=== PATIENT | female | born 1985 | race Caucasian/White ===

== ENCOUNTER 2022-07-21 10:16 | Outpatient (CLI) | payer OTHER, SELFPAY ==
[2022-07-21 11:58] LABS: Kit Draw Collected
== END 2022-07-21 10:17 | disposition home or self-care (01) ==
LOC: ANHGOSHLAB 10:21
PROVIDERS: PCP Family Medicine; Visit Provider Family Medicine
DX: R00.2 Palpitations (principal)
CPT/HCPCS: 36415

== ENCOUNTER 2024-11-17 08:03 | Outpatient (CLI) | payer OTHER, SELFPAY ==
--- OUTSIDE RECORDS SUMMARY | 2024-11-17 08:07 | XMS_ITS | Clinical Summary ---
Author Organization [facility] Address [address] [place] [address] Care Team Providers Care Thread Roller Name Role Phone Marisela Fairchild MD Primary Care Provider + Allergies No known active allergies Medications FLUoxetine (PROzac) 40 mg capsule Take 1 capsule (40 mg total) by mouth daily Active metoprolol XL (TOPROL-XL) 25 mg extended release tablet Take 1 tablet (25 mg total) by mouth daily 04/14/2022 Active Ozempic 0.25 mg or 0.5 mg (2 mg/3 mL) pen injector injection 11/02/2023 Active estradioL (VIVELLE-DOT) 0.0375 mg/24 hr 03/22/2024 Act faye progesterone (PROMETRIUM) 100 mg capsule Take 1 capsule (100 mg total) by mouth daily 03/22/2024 Active Active Problems Problem Noted Date Diagnosed Date IUD (intrauterine device) in place 11/10/2023 Overview (11/10/2023): Rica 05/2020 Heart palpitations 05/13/2022 Assessment & Plan (05/13/2022 9:31 AM SENIOR QUALITATIVE RESEARCHER): Suspect PACs or PVCs. ECG in office today and in ED shows normal sinus rhythm. Recommend ambulatory monitoring to screen for arrhythmia and quantify any burden. Also recommend TTE to r/o strucutral heart disease. Reassured pt that her symptoms most likely reflect benign arrhythmia. --Continue metoprolol XL 25 mg daily --24 hour Holter monitor --Transthoracic echocardiogram F/u pending results Bimalleolar ankle fracture, left, closed, initia l encounter 04/18/2020 Anxiety disorder 06/04/2015 Acne 10/01/2011 Immunizations Immunization Administration Dates Next Due Influenza, Unspecified 12/07/2019 Surgical History Surgery Date Site/Laterality Comments FACIAL SURGERY Facial Surgery - (Added by Conv) Medical History Medical History Date Comments Anxiety Family History Medical History Relation Name Comments Diabetes Maternal Grandmother Family history of diabetes mellitus - (Added by Conv) Uterine cancer Maternal Grandmother Famil y history of uterine cancer - (Added by Conv) Heart disease Paternal Grandfather Family history of cardiac disorder - (Added by Conv) Heart disease Paternal Grandmother Family history of cardiac disorder - (Added by Conv) Relation Name Status Comments Maternal Grandmother Paternal Grandfather Paternal Grandmother Social History Tobacco Use Types Packs/Day Years Used Date Smoking Tobacco: Never Comments No Sex and Gender Information Value Date Recorded Sex Assigned at Not on file Legal Sex Female 7:14 PM SENIOR QUALITATIVE RESEARCHER Gender Identity Female 04/25/2020 10:18 AM SENIOR QUALITATIVE RESEARCHER Sexual Orientation Straight 04/25/2020 10 :18 AM SENIOR QUALITATIVE RESEARCHER Obstetrics History Para Term AB IAB SAB Ectopic Multiple Livin g Live Births 3 2 2 2 2 Date Outcome GA Total Labor Labor/2nd/3rd Weight Sex Type Anes PTL Ayah A1 A5 Name Clin Term Term 014 37w 4d 18h 00m/3h 00m/ 3.062 kg (6 lb 12 oz) F Vag-S pont Epidur al N Livin g 8 9 Divya Minch ow-Pr offit t, S. Delivery Location:[facility] Last Filed Vital Signs Vital Sign Reading Time Taken Comments Blood Pressure 92/68 06/01/2024 10:04 AM CDT Pulse 76 08/19/2023 10:37 AM CDT Temperature 37 C (98.6 F) 08/19/2023 10:37 AM CDT Respiratory Rate 20 08/19/2023 10:37 AM CDT Oxygen Saturation 100% 08/19/2023 10:37 AM CDT Inhaled Oxygen Concentration - - Weight 62.1 kg (137 lb) 06/01/2024 10:04 AM CDT Height 162.6 cm (5' 4) 08/19/2023 10:37 AM CDT Body Mass Index 23.52 08/19/2023 10:37 AM CDT Plan of Treatment Health Maintenance Due Date Last Done Comments Depression Screening 1983 Hepatitis C Screening 1985 Varicella Vaccines (1 of 2 - 13+ 2-dose series) 09/08/1996 Hepatitis B Screening 09/08/2001 HPV Vaccines (1 - 3-dose SCDM series) 09/08/2010 Cervical Cancer Screening 11/11/2023 11/10/2023 Influenza Vaccine (#1) 2024 , 12/16/2019, 12/07/2019, Additional history exists Regular Well Visit/Exam 18-64 11/09/2024 11/10/2023 Breast Cancer Screening-Mammogram 01/12/2025 01/13/2024 DTaP/Tdap/Td Vaccine (3 - Td or Tdap) 04/01/2025 04/01/2015, 04/03/2013 Pneumococcal vaccine <65 Aged Out No longer eligible based on patient's age to complete this topic Medical Devices Implanted Type Area Windows Application Administrator Device Identifier Shelf Expiration Date Model / Serial / Lot Synthes 204.824 3.5mm 6mm 24mm 2.5mm Self Tap Small Hexagonal Socket Low Profile - [id number] Implanted:Qty: 1 on 04/19/2020 by Saleem Gomez MD at [facility] Left: Ankle Synthes I 204.824 / / Synthes 204.826 3.5mm 6mm 26mm 2.5mm Self Tap Small Hexagonal Socket Low Profile - [id number] Implanted:Qty: 3 on 04/19/2020 by Saleem Gomez MD at [facility] Left: Ankle Synthes I 204.826 / / Synthes 204.834 3.5mm 6mm 34mm 2.5mm Self Tap Small Hexagonal Socket Low Profile - [id number] Implanted:Qty: 1 on 04/19/2020 by Saleem Gomez MD at [facility] Left: Ankle Synthes I 204.834 / / Synthes 02.211.040 2.7mm 40mm Self Tap Lock Variable Angle Stardrive T8 Screw Bone - [id number] Implanted:Qty: 2 on 04/19/2020 by Saleem Gomez MD at [facility] Left: Ankle Synthes I 02.211.040 / / Synthes ..032 2.7mm 32mm Self Tap Lock Variable Angle Stardrive T8 Screw Bone - [id number] Implanted:Qty: 1 on 04/19/2020 by Saleem Gomez MD at [facility] Left: Ankle Synthes I ..032 / / Synthes .030 2.7mm 30mm Self Tap Lock Variable Angle Stardrive T8 Screw Bone - [id number] Implanted:Qty: 1 on 04/19/2020 by Saleem Gomez MD at [facility] Left: Ankle Synthes I .030 / / Synthes 118.005 Lcp Combi 142mm 6 Hole Variable Angle Low Profile Tibia Left - [id number] Implanted:Qty: 1 on 04/19/2020 by Saleem Gomez MD at [facility] Left: Ankle Synthes I 118.005 / / Explanted Type Area Windows Application Administrator Device Identifier Shelf Expiration Date Model / Serial / Lot Synthes 204.828 3.5mm 6mm 28mm 2.5mm Self Tap Small Hexagonal Socket Low Profile - [id number] Explanted:Qty: 1 on 04/19/2020 at [facility] Left: Ankle Synthes I 204.828 / / Synthes 204.830 3.5mm 6mm 30mm 2.5mm Self Tap Small Hexagonal Socket Low Profile - [id number] Explanted:Qty: 1 on 04/19/2020 at [facility] Left: Ankle Synthes I 204.830 / / Procedures Procedure Name Priority Date/Time Associated Diagnosis Comments SCREENING MAMMOGRAM BILATERAL W TAE Schedule Routine, Read Routine (OP Routine) 01/13/2024 9:11 AM SENIOR QUALITATIVE RESEARCHER Screening mammogram, encounter for PAP AND HPV, REFLEX TO HPV GENOTYPES Routine 11/10/2023 10:30 AM CDT Cervical cancer screening from Last 3 Months or Most Recently Relevant to Health Maintenance Results * Screening Mammogram Bilateral W Tae (01/13/2024 9:11 AM SENIOR QUALITATIVE RESEARCHER) Anatomical Region Laterality Modality Breast Bilateral Mammography Narrative 01/13/2024 11:54 AM SENIOR QUALITATIVE RESEARCHER Mammogram Technique: Bilateral Digital Breast Tomosynthesis, Bilateral C-view 2D Screening mammogram. Views obtained: bilateral craniocaudal and bilateral mediolateral oblique. Computer Aided Detection was performed. Mammogram Findings: This is a baseline study. The breasts are heterogeneously dense, which may obscure small masses. There is no suspicious abnormality in either breast. Impression: There is no mammographic evidence of malignancy. Annual screening mammography is recommended. If supplemental screening is desired, breast MRI would be recommended in this patient with heterogeneously dense breasts. OVERALL FINAL ASSESSMENT: BI-RADS CATEGORY 1: Negative. Procedure Note Mala Sands MD - 01/13/2024 Mammogram Technique: Bilateral Digital Breast Tomosynthesis, Bilateral C-view 2D Screening mammogram. Views obtained: bilateral craniocaudal and bilateral mediolateral oblique. Computer Aided Detection was performed. Mammogram Findings: This is a baseline study. The breasts are heterogeneously dense, which may obscure small masses. There is no suspicious abnormality in either breast. Impression: There is no mammographic evidence of malignancy. Annual screening mammography is recommended. If supplemental screeningis desired, breast MRI would be recommended in this patient with heterogeneously dense breasts. OVERALL FINAL ASSESSMENT: BI-RADS CATEGORY 1: Negative. us Self Screening Mammogram IMG MAMMO PROCEDURES Fi nal Result * Pap and HPV, reflex to HPV Genotypes (11/10/2023 10:30 AM CDT) Clinical indication Comment [facility] - 01 Comment: NEGATIVE FOR INTRAEPITHELIAL LESION OR MALIGNANCY. CELLULAR CHANGES ASSOCIATED WITH INFLAMMATION ARE PRESENT. Specimen adequacy: Comment [facility] - 01 Comment: Satisfactory for evaluation. Endocervical and/or squamous metaplastic cells (endocervical component) are present. Clinician provided ICD10 Comment [facility] - 01 Comment:Z12.4 Performed by Comment [facility] - 01 Comment:Cheryle wu, Amusement Park Worker (ASCP) . . [facility] - 01 Note: Comment [facility] - 01 Comment: The Pap smear is a screening test designed to aid in the detection of premalignant and malignant conditions of the uterine cervix. It is not a diagnostic procedure and should not be used as the sole means of detecting cervical cancer. Both false-positive and false-negative reports do occur. Test methodology Comment [facility] - 01 Comment: This liquid based ThinPrep(R) pap test was screened with the use of an image guided system. HPV Aptima Negative Negative [facility] 02 Comment: This nucleic acid amplification test detects fourteen high-risk HPV types (16,18,31,33,35,39,45,51,52,56,58,59,66,68) without differentiation. HPV Genotype Reflex Comment [facility] - Comment:Criteria not met, HP V Genotype not performed. Thin prep 11/10/2023 10:3 0 AM CDT 11/10/2023 Narrative [facility] - 11/13/2023 2:09 PM CDT Performed at: - [address] [id number] Manager Dairy: Delphine Mac MD, Phone: [phone] Performed at: 02 - [address] [id number] Manager Dairy: Delphine Mac MD, Phone: [phone] Specimen Comment: Source.............Cervix;Endocervix Specimen Comment: No. of containers..01 ThinPrep Vial us Arely Carrizales MD LAB CYTOLOGY ORDERABLES [facility] - 01 [facility] 02 from Last 3 Months or Most Recently Relevant to Health Maintenance Insurance CIGNA OPEN ACCESS CIGNA OPEN ACCESS CIGNA OPEN ACCESS CIGRAUDEL OPEN ACCESS GERI OPEN ACCESS Advance Directives For more information, please contact: [phone] * Full Code (Latest Code Status on File) Date Activated Date Inactivated Comments 04/19/2020 5:20 PM 04/20/2020 7:47 PM * Full Code Date Activated Date Inactivated Comments 04/18/2020 7:38 PM 04/19/2020 5:20 PM Care Teams Thread Roller Relationship Specialty Start Date End Date Marisela Fairchild MD PCP - General 04/05/17
[2024-11-17 18:13] LABS: Hematocrit 38.5 % (37.0-47.0); Hemoglobin 12.5 g/dL (12.0-15.0); Immature Granulocyte Percent A 0.2 % (0-0.5); Lymphocytes Absolute Auto 1.43 K/mm3 (0.9-3.2); Mean Corpuscular HGB Conc 32.5 g/dl (32-36); Mean Corpuscular Hemoglobin 31.5 pg (26-34); Mean Corpuscular Volume 97.0 fl (80-100); Nucleated Red Blood Cells Absolute Auto 0.000 K/mm3 (0.0-0.012); Nucleated Red Blood Cells Perc 0.0 % (0.0-0.2); Platelet Count Result 237 k/mm3 (150-375); Red Blood Count 3.97 M/mm3 (4.2-5.4); White Blood Count 4.2 K/mm3 (4.5-10.0)
[2024-11-17 19:04] LABS: Alanine Aminotransferase 14 U/L (6-35); Albumin Level 4.4 g/dL (3.5-5.1); Alkaline Phosphatase 49 U/L (38-126); Anion Gap 7 mmol/L (4-12); Aspartate Amino Transferase 31 U/L (14-36); Bilirubin,Total 0.3 mg/dL (0.2-1.3); Blood Urea Nitrogen 18 mg/dL (7-17); Calcium 8.9 mg/dL (8.4-10.2); Carbon Dioxide 29 mmol/L (22-30); Chloride 102 mmol/L (98-107); Cholesterol 182 mg/dL (0-200); Estimated Glomerular Filt Rate > 60; Glucose 81 mg/dL (65-110); HDL Direct 70 mg/dL; Potassium 4.2 mmol/L (3.4-5.0); Sodium 138 mmol/L (137-145); Total Protein 7.4 g/dL (6.3-8.2); Triglycerides 57 mg/dL (<150)
[2024-11-17 19:16] LABS: Ferritin 90.00 ng/mL (6.24-137)
[2024-11-17 19:39] LABS: Thyroid Stimulating Hormone 0.804 uIU/mL (0.465-4.680)
[2024-11-17 19:58] LABS: Vitamin B12 344.0 pg/mL (239-931)
== END 2024-11-17 08:04 | disposition home or self-care (01) ==
LOC: ANHGOSHLAB 08:04
PROVIDERS: PCP Family Medicine; Visit Provider Family Medicine
DX: Z00.00 Encounter for general adult medical examination without abnormal findings (principal); R00.2 Palpitations; R41.89 Other symptoms and signs involving cognitive functions and awareness
CPT/HCPCS: 36415; 80053; 80061; 82607; 82728; 84443; 85025